=== PATIENT | female | born 1990 | race Caucasian/White ===

== ENCOUNTER 2017-03-12 16:08 | Emergency (ER) | payer OTHER ==
[~2017-03-12] VITALS: Ht 157.5 cm; Wt 84.0 kg
[2017-03-12 16:24] VITALS: BP 114/63
== END 2017-03-12 17:49 | disposition home or self-care (01) ==
LOC: ED 16:08
DX: M54.2 Cervicalgia (principal); R51 Headache

== ENCOUNTER 2017-12-02 22:09 | Emergency (ER) | payer OTHER ==
[~2017-12-02] VITALS: Ht 165.1 cm; Wt 85.7 kg
[2017-12-02 22:13] VITALS: Ht 165.1 cm; Wt 85.7 kg
[2017-12-02 23:50] VITALS: BP 113/74
== END 2017-12-02 23:40 | disposition home or self-care (01) ==
LOC: ED 22:09
DX: K08.89 Other specified disorders of teeth and supporting structures (principal)

== ENCOUNTER 2018-07-24 20:30 | Emergency (ER) | payer OTHER ==
[~2018-07-24] VITALS: Ht 170.2 cm; Wt 91.6 kg
[2018-07-24 21:23] LABS: CALCIUM 8.7 mg/dL (8.5-10.1); CARBON DIOXIDE 22.3 mmol/L (21-32); CHLORIDE SERUM 105 mmol/L (98-107); CREATININE SERUM 0.8 mg/dL (0.6-1.0); GFR1 > 60 mL/min; GLUCOSE SERUM 89 mg/dL (74-106); POTASSIUM SERUM 3.5 mmol/L (3.5-5.1); SODIUM SERUM 140 mmol/L (136-145)
[2018-07-24 21:28] LABS: UA SPECIFIC GRAVITY >=1.030 (1.005-1.035); microscopic required? YES; urine erythrocyte 1+ (NEGATIVE)
[2018-07-24 21:32] LABS: BASOPHIL % 0.4 % (0-2); PLATELET COUNT 285 x10^3mcL (130-400); RED CELL DISTRIBUTION WIDTH 15.7 % (11.5-14.5)
[2018-07-24 21:36] LABS: ALKALINE PHOSPHATASE 76 U/L (46-116); ALT/SGPT 24 U/L (14-59); AST/SGOT 20 U/L (15-37); BILIRUBIN TOTAL 0.21 mg/dL (0.20-1.00); FREE T4 0.98 ng/dL (0.76-1.46); TOTAL PROTEIN, SERUM 7.9 g/dL (6.4-8.2)
[2018-07-24 21:36] LABS: AMPHETAMINE QUAL UR NONE DETECTED (See below)
[2018-07-24 21:37] LABS: ALBUMIN 3.3 g/dL (3.4-5.0)
[2018-07-24 22:38] VITALS: BP 119/60
== END 2018-07-24 22:38 | disposition home or self-care (01) ==
LOC: ED 20:30
PROVIDERS: Emergency Medicine
DX: R07.2 Precordial pain (principal); R06.02 Shortness of breath; R00.2 Palpitations
CPT/HCPCS: 36415; 83880; 84439; 85378; 99406